=== PATIENT | female | born 1970 | race Caucasian/White ===

== ENCOUNTER 2024-07-01 15:32 | Emergency (ER) | payer SELFPAY ==
[2024-07-01 15:34] VITALS: BP 107/71
[2024-07-01 15:54] VITALS: BMI 25.1
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
[2024-07-01] MEDS: TORADOL 60 MG IM (16:01)
== END 2024-07-01 17:18 | disposition home or self-care (01) ==
LOC: EMR 15:32
PROVIDERS: EMERGENCY PHYSICIAN Emergency Medicine; FAMILY PHYSICIAN Nurse Practitioner Family
DX: S39.012A Strain of muscle, fascia and tendon of lower back, initial encounter (principal); S42.302A Unspecified fracture of shaft of humerus, left arm, initial encounter for closed fracture; V43.92XA Unspecified car occupant injured in collision with other type car in traffic accident, initial encounter; W22.10XA Striking against or struck by unspecified automobile airbag, initial encounter; Y92.410 Unspecified street and highway as the place of occurrence of the external cause
CPT/HCPCS: 99283; 72110